=== PATIENT | female | born 1990 | race African-American/Black ===

== ENCOUNTER 2019-12-04 10:07 | Emergency (ER) | payer MEDICAID ==
[~2019-12-04] VITALS: Ht 154.9 cm; Wt 77.5 kg
[2019-12-04] MEDS ORDERED: ACETAMINOPHEN 325MG TABLET PO ONE (10:45)
[2019-12-04 12:58] LABS: CLARITY URINE CLEAR (CLEAR); COLOR URINE DARK YELLOW (YELLOW); KETONES URINE NEGATIVE (NEGATIVE); LEUKOCYTE ESTERASE URINE 2+ (NEGATIVE); NITRITE URINE POSITIVE (NEGATIVE); OCCULT BLOOD URINE NEGATIVE (NEGATIVE); PROTEIN URINE NEGATIVE (NEGATIVE); SPECIFIC GRAVITY URINE 1.013 (1.005-1.030)
[2019-12-04 13:05] VITALS: BP 130/84
== END 2019-12-04 13:07 | disposition home or self-care (01) ==
LOC: ER 10:07
DX: N30.00 Acute cystitis without hematuria (principal); Z98.890 Other specified postprocedural states
CPT/HCPCS: 81003; 81025; 99283